=== PATIENT | male | born 1990 ===

== ENCOUNTER 2017-11-05 01:11 | Emergency (ER) | payer OTHER ==
[2017-11-05 01:59] VITALS: BMI 20.3
[2017-11-05 02:03] VITALS: O2SAT 99
--- NOTE | 2017-11-05 02:23 | ED PDOC ---
HPI: Dental Pain/Injury Time Seen by Provider: 11/05/17 02:02 Chief Complaint (Nursing): Dental Pain History Per: Patient Additional Complaint(s): Pt. states for the past 2 months he's had worsening L upper toothache which became worse today. States he took 2 doses of Motrin 400mg without relief. Denies trauma, fever, swelling. Past Medical History Reviewed: Historical Data, Nursing Documentation, Vital Signs Vital Signs: Last Vital Signs Temp 98.4 F 11/05/17 01:59 Pulse 68 11/05/17 01:59 Resp 16 11/05/17 01:59 BP 152/98 H 11/05/17 01:59 Pulse Ox 99 11/05/17 01:59 - Family History Family History: States: No Known Family Hx - Home Medications Home Medications: Ambulatory Orders Medication Instructions Recorded Amoxicillin [Amoxil 500 mg Cap] 500 mg PO TID #9 cap 11/05/17 Naproxen [Naprosyn] 500 mg PO BID PRN #10 tab 11/05/17 - Allergies Allergies/Adverse Reactions: Allergies Allergy/AdvReac Type Severity Reaction Status Date / Time No Known Allergies Allergy Verified 11/05/17 01:59 Review of Systems ROS Statement: Except As Marked, All Systems Reviewed And Found Negative Physical Exam - Physical Exam Appears: Positive for: Well, Non-toxic, No Acute Distress Head Exam: Positive for: ATRAUMATIC, NORMAL INSPECTION, NORMOCEPHALIC Skin: Positive for: Normal Color, Warm. Negative for: Rash Eye Exam: Positive for: Normal appearance ENT: Positive for: Other (L maxillary lateral incisor with dental le; no gingival swelling throughout) Neurologic/Psych: Positive for: Alert, Oriented. Negative for: Aphasia, Facial Droop - ECG O2 Sat by Pulse Oximetry: 99 - Progress ED Course And Treament: Ultram 50mg PO ordered. Disposition - Clinical Impression Clinical Impression: Dental caries - Patient ED Disposition Is Patient to be Admitted: No - Disposition Referrals: [facility] [Outside] Disposition: Routine/Home Disposition Time: 02:24 Condition: STABLE Additional Instructions: Follow up with dentist for further evaluation. Return to ED immediately if symptoms worsen. Prescriptions: Amoxicillin [Amoxil 500 mg Cap] 500 mg PO TID #9 cap Naproxen [Naprosyn] 500 mg PO BID PRN #10 tab PRN Reason: Pain Instructions: Dental Pain (DC) Print Language: GAMBIAN
[2017-11-05 03:05] VITALS: BP 136/89; PULSE 59; RESP 18; TEMP 98.8
== END 2017-11-05 03:10 | disposition home or self-care (01) ==
LOC: H.ER 01:11
DX: K02.9 Dental caries, unspecified (principal)